=== PATIENT | male | born 1980 | race Caucasian/White ===

== ENCOUNTER 2024-01-27 14:15 | Emergency (ER) | payer OTHER ==
[~2024-01-27 14:15] MED LIST: Benztropine 1 MG Tab PO SCH; Citalopram 20 MG Tab PO SCH; Famotidine 20 MG Tab PO SCH; Paliperidone 3 MG Tab.ER PO SCH
[2024-01-27] MEDS ORDERED: PALIPERIDONE 6 MG PO SCH (15:30)
[2024-01-27] MEDS ORDERED: LITHIUM CARBONATE 300 MG PO SCH (15:30)
[2024-01-27] MEDS ORDERED: Non-Formulary Medication 1 Each (Citalopram Hydrobromide [Celexa] 40 MG Tablet) PO SCH (15:30)
[2024-01-27] MEDS ORDERED: BENZTROPINE MESYLATE 0.5 MG PO SCH (15:30)
[2024-01-27 15:42] LABS: BASOPHILS ABSOLUTE AUTO 0.03 K/uL (0.00-0.10); BASOPHILS PERCENT AUTO 0.4 % (0.1-1.3); EOSINOPHILS ABSOLUTE AUTO 0.03 K/uL (0.00-0.40); EOSINOPHILS PERCENT AUTO 0.4 % (0.0-5.4); HEMATOCRIT 40.8 % (38.4-49.7); HEMOGLOBIN 15.1 g/dL (12.9-16.9); IMMATURE GRAN PERCENT AUTO 0.3 % (0.0-0.7); LYMPHOCYTES ABSOLUTE AUTO 1.59 K/uL (0.8-3.3); LYMPHOCYTES PERCENT AUTO 21.1 % (11.4-47.7); MEAN CORPUSCULAR HEMOGLOBIN 36.3 pg (31.6-35.5); MEAN CORPUSCULAR VOLUME 98.1 fL (81.4-99.0); MONOCYTES ABSOLUTE AUTO 0.76 K/uL (0.20-0.90); MONOCYTES PERCENT AUTO 10.1 % (3.3-12.6); NEUTROPHILS ABSOLUTE AUTO 5.12 K/uL (1.0-7.6); NEUTROPHILS PERCENT AUTO 67.7 % (40.0-78.1); PLATELET COUNT,PLT 193 K/uL (130-375); RED BLOOD CELL COUNT 4.16 M/uL (4.14-5.76); WHITE BLOOD CELL COUNT,WBC 7.6 K/uL (3.2-11.0)
[2024-01-27 15:44] LABS: IMMATURE GRAN ABSOLUTE AUTO 0.02 K/uL (0.00-0.23)
[2024-01-27] MEDS: Paliperidone 3 MG Tab.ER PO SCH (15:51)
[2024-01-27] MEDS: Benztropine 1 MG Tab PO SCH (15:51)
[2024-01-27] MEDS: Citalopram 20 MG Tab PO SCH (15:51)
[2024-01-27 15:59] LABS: CALCIUM 10.5 mg/dL (8.5-10.1); CREATININE 0.8 mg/dL (0.8-1.3); EST CRCL DRUG DOSING (CG) 107.44 mL/min; POTASSIUM,K 3.9 mmol/L (3.6-5.2)
[2024-01-27 16:00] LABS: ANION GAP 15.9 mmol/L (5.0-14.0)
[2024-01-27] MEDS ORDERED: Pantoprazole 40 MG Tab.CR PO ONE (16:29)
== END 2024-01-27 17:20 ==
LOC: JP.ED 14:15
DX: K21.9 Gastro-esophageal reflux disease without esophagitis (principal); F17.210 Nicotine dependence, cigarettes, uncomplicated
CPT/HCPCS: 36415; 80048; 80307; 83605; 84484; 85025; 99284; A9270